=== PATIENT | male | born 1945 | race Caucasian/White ===

== ENCOUNTER 2018-09-21 11:20 | Day surgery (SDC) | payer MEDICARE, SELFPAY ==
[2018-09-21 11:48] VITALS: BP 140/77; PULSE 54; RESP 16; TEMP 36.8; O2SAT 94; BMI 28.0
[2018-09-21 11:56] LABS: Bedside Glucose 144 mg/dL (70-110)
[2018-09-21 13:26] VITALS: BP 106/68; BP 140/77; PULSE 64; RESP 18; TEMP 36.4; O2SAT 97
--- NOTE | 2018-09-21 13:28 | OP.ENDO_ITS ---
Patient Name: Inderjit Ha Procedure Date: 09/21/2018 12:50 PM Date of : 1945 Age: 73 Procedure: Colonoscopy Indications: High risk colon cancer surveillance: Personal history of colonic polyps Providers: Zofia Michael MD Referring MD: Zofia Michael MD Patient Profile: Refer to note in patient chart for documentation of history and physical. Last Colonoscopy: 5 years ago. Complications: No immediate complications. Procedure: Pre-Anesthesia Assessment: - Prior to the procedure, a History and Physical was performed, and patient medications and allergies were reviewed. The patient is competent. The risks and benefits of the procedure and the sedation options and risks were discussed with the patient. All questions were answered and informed consent was obtained. Patient identification and proposed procedure were verified by the physician in the pre-procedure area. Mental Status Examination: alert and oriented. Airway Examination: normal oropharyngeal airway and neck mobility. Respiratory Examination: clear to auscultation. CV Examination: normal. Prophylactic Antibiotics: The patient does not require prophylactic antibiotics. Prior Anticoagulants: The patient has taken no previous anticoagulant or antiplatelet agents. ASA Grade Assessment: II - A patient with mild systemic disease. After reviewing the risks and benefits, the patient was deemed in satisfactory condition to undergo the procedure. The anesthesia plan was to use monitored anesthesia care (MAC). Immediately prior to administration of medications, the patient was re-assessed for adequacy to receive sedatives. The heart rate, respiratory rate, oxygen saturations, blood pressure, adequacy of pulmonary ventilation, and response to care were monitored throughout the procedure. The physical status of the patient was re-assessed after the procedure. After I obtained informed consent, the scope was passed under direct vision. Throughout the procedure, the patient's blood pressure, pulse, and oxygen saturations were monitored continuously. The pediatric colonoscope was introduced through the anus and advanced to the cecum, identified by the appendiceal orifice, IC valve and transillumination. The colonoscopy was performed without difficulty. The patient tolerated the procedure well. The quality of the bowel preparation was adequate to identify polyps 6 mm and larger in size. There was retained fecal material which required time to lavage and aspirate out. However, the allen were cleared adequately. Scope In: 1:00:44 PM Scope Withdrawal Time 0 hours 17 minutes 24 seconds Scope Out: 1:20:59 PM Total Procedure Duration Time 0 hours 20 minutes 15 seconds Findings: The perianal and digital rectal examinations were normal. Pertinent negatives include normal sphincter tone. Non-bleeding external and internal hemorrhoids were found. Impression: - Diverticulosis in the sigmoid colon. - Non-bleeding external and internal hemorrhoids. - No specimens collected. Recommendation: - Repeat colonoscopy in 5 years for surveillance. - Return to primary care physician PRN. - Continue present medications. Procedure Code(s): --- Professional --- G0105, Colorectal cancer screening; colonoscopy on individual at high risk Diagnosis Code(s): --- Professional --- Z86.010, Personal history of colonic polyps K64.8, Other hemorrhoids K57.30, Diverticulosis of large intestine without perforation or abscess without bleeding CPT copyright 2017 [employer]. All rights reserved. The codes documented in this report are preliminary and upon leadership development manager review may be revised to meet current compliance requirements. MD Zofia Claire MD 09/21/2018 1:27:25 PM This report has been signed electronically. Number of Addenda: 0 Note Initiated On: 09/21/2018 12:50 PM
[2018-09-21 13:30] VITALS: BP 119/69; BP 140/77; PULSE 65; RESP 18; O2SAT 95
[2018-09-21 13:35] VITALS: BP 128/71; BP 140/77; PULSE 59; RESP 18; O2SAT 98
[2018-09-21 13:40] VITALS: BP 123/84; BP 140/77; PULSE 59; RESP 16; TEMP 36.2; O2SAT 95
[2018-09-21 13:54] VITALS: BP 140/77
== END 2018-09-21 14:04 | disposition home or self-care (01) ==
LOC: EN 11:25 → AC 11:27
PROVIDERS: Family Provider Family Medicine; PCP Family Medicine; Referring Provider Surgery; Visit Provider Surgery
PROC: 0DJD8ZZ Inspection of Lower Intestinal Tract, Via Natural or Artificial Opening Endoscopic (ICD-10-PCS; CPT 45378; principal; 2018-09-21 12:40)
DX: Z12.11 Encounter for screening for malignant neoplasm of colon (principal); Z86.010 Personal history of colon polyps; K64.8 Other hemorrhoids; K57.30 Diverticulosis of large intestine without perforation or abscess without bleeding; I25.10 Atherosclerotic heart disease of native coronary artery without angina pectoris; E11.9 Type 2 diabetes mellitus without complications; E78.5 Hyperlipidemia, unspecified; I10 Essential (primary) hypertension; I25.2 Old myocardial infarction; Z87.891 Personal history of nicotine dependence
CPT/HCPCS: G0105; 82962; J7120

== ENCOUNTER 2024-09-01 08:18 | Day surgery (SDC) | payer MEDICARE, MEDICAID, SELFPAY ==
[2024-09-01] VITALS (7 sets, daily range): BP systolic 88–153; BP diastolic 54–84; PULSE 57–71; RESP 14–16; TEMP 36.1–36.7; O2SAT 93–98; BMI 27.7
--- NOTE | 2024-09-01 | IMM_PTH ---
PATIENT: MARY LEO LOC: EN U#:[id number] AGE/SX: 79/M ROOM: RE09/01/[address]: Dr. Roger Pringle DO : 1945 BED: DIS: 09/01/2024 SPEC #: [id number] RECD: 09/01/24 12:45 STATUS: DANIELLA REQ #: [id number] DON: 09/01/24 00:[address]: Roger Pringle DEPT: IMMUNOHISTOCHEMISTRY RECD BY: Tim Yang ENTERED: 09/01/24 12:45 SP TYPE: IMMUNO OTHR DR: Dr. Catrachito Ferris MD Tissues: A - Gastric mucous membrane B - Esophagus, NOS Procedures: H Pylori (initial) P53 (initial) KI-67 (add) PHYSICIAN & INSTITUTION [place] [id number] SPECIMEN INFORMATION: Tissue Source: A- Gastric body biopsy, B- Distal esophagus biopsy Clinical Info: Gastroesophageal reflux disease Specimen Number: [id number] A, B CPT code: 42377x9,42840 METHODOLOGY: Deparaffinized sections of prefer/formalin-fixed tissue or PAP/DQ stained slides are incubated with monoclonal/polyclonal antibodies/oligonucleotide probes. Localization is made via biotin free immunoperoxidase method. Appropriate controls are performed and reacted as expected. Results on target cell population are indicated in the following table: RESULTS: ANTIBODY / CLONE RESULT Block A H Pylori (polyclonal) negative Block B P53 (DO-7) positive, wild type Ki-67 (30-9) positive, low These tests were developed and their performance characteristics determined by [facility]. They may not have been cleared or approved by the U.S. Food and Drug Administration. The FDA has determined that such clearance or approval is not necessary. The above immunohistochemical/dualISH markers are ordered and reviewed by the Pathologist. INTERPRETATION: A. Gastric body, biopsy: Negative for Helicobacter pylori organisms. B. Distal esophagus, biopsy: No evidence of dysplasia. AM. 09/03/2024
--- NOTE | 2024-09-01 08:32 | PRE.ANES_ITS ---
ASA Classification* ASA Classification ASA Classification: 3 Assessment & Plan Anesthesia* Anesthesia Assessment Anesthesia Assessment: Discussed sedation and/or anesthesia options, risks, benefits, and alternatives with patient/parents/legal guardian/POA. Questions invited. The patient/parents/legal guardian/POA seems to understand and agrees to proceed with anesthesia plan. Reviewed the physical assessment, medical history, allergy history and patient home medications list prior to surgery/procedure/anesthetic and documented any changes. Performed airway and anesthesia risk assessments. Anesthesia Type Anesthesia Type: MAC Anesthesia Focused Assessment* Airway Assessment Mouth opens: >3 cm Mallampati Score: II Focused Labs Anesthesia Preop lab: CBC WBC 5.6 K/mm3 (4.4-11.0) 03/18/16 10:48 RBC 4.78 M/mm3 (4.6-6.2) 03/18/16 10:48 Hgb 15.2 g/dl (13.0-16.5) 03/18/16 10:48 Hct 43.3 % (40-54) 03/18/16 10:48 Plt Count 227 K/mm3 (150-450) 03/18/16 10:48 CHEMISTRY Potassium 4.2 mmol/L (3.5-5.1) 03/18/16 10:48 Sodium 136 mmol/L (136-145) 03/18/16 10:48 BUN 17 mg/dL (7-18) 03/18/16 10:48 Creatinine 0.94 mg/dL (0.70-1.30) 03/18/16 10:48 Glucose 124 mg/dL (70-110) H 03/18/16 10:48 POC Glucose 144 mg/dL (70-110) H 09/21/18 11:45 TSH 1.81 uIU/mL (0.358-3.74) 08/25/15 10:44 COAG PT 13.1 SECONDS (11.7-14.9) 03/18/16 10:48 Pre-Assessment Diagnosis/Proposed Procedure Planned Operative Procedure(s): EGD Anesthesia History 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 When Was Last Pacemaker Check QUESTION #4 FULL TEXT: You/Your Family Experience fever (hyperthermia) with Anesthesia Last Oral Intake Last Oral intake: Last Oral Intake NPO since Meds taken in AM with sips of water? Meds patient instructed to take am of surgery PONV PONV - airport operations crew member: PONV - airport operations crew member Female No 08/30/24 10:55 HX of Motion Sickness No 08/30/24 10:55 HX of N/V After Surgery No 08/30/24 10:55 Non-Smoker Yes 08/30/24 10:55 Duration of Surgery greater No 08/30/24 10:55 than 60 minutes Number of Risk Factors 1 08/30/24 10:55 PONV Score Low Risk 08/30/24 10:55 Height & Weight Height & Weight: Anesthesia: Height & Weight Height 5 ft 6 in 03/08/24 13:30 Respiratory Assessment Respiratory Assessment - airport operations crew member: Respiratory Tract Infection Hx - airport operations crew member Hx Respiratory Tract Infection No 08/30/24 10:55 STOP Sleep Apnea STOP Sleep Apnea - airport operations crew member: STOP Sleep Apnea - airport operations crew member Hx Hypertension Yes 08/30/24 10:55 Hx Sleep Apnea No 08/30/24 10:55 CPAP BIPAP Do you snore loudly (louder No 08/30/24 10:55 than talking or can be heard Do you often feel tired/ No 08/30/24 10:55 fatigued/ sleepy during daytime? Has anyone observed you stop No 08/30/24 10:55 breathing during sleep? STOP Results Negative 08/30/24 10:55 QUESTION #5 FULL TEXT : Do you snore loudly (louder than talking or can be heard through closed doors)? Tobacco Use History Tobacco Use History - airport operations crew member: Tobacco Use History - airport operations crew member Tobacco Use Smoking Status Former smoker 08/30/24 10:55 Hx Tobacco Use No 08/30/24 10:55 Years Smoking Packs Smoked per Day Smoking Cessation Date was No - quit smoking greater 08/30/24 10:55 within the last 15 years than 15 years ago Hx Smoking Cessation Date Hx Smoking Cessation Counseling Hematologic Medial History Hematologic Hx - airport operations crew member: Hematologic Medical Hx - television journalist Hx of Blood Transfusion Yes 08/30/24 10:55 Hx of Transfusion in last 3 No 08/30/24 10:55 Months Date of Last Transfusion (if within last 3 months) Ever experience any problems No 08/30/24 10:55 with transfusion(s)? Specify any problems Hx of Preganancy in last 3 N/A 08/30/24 10:55 Months Nurse Filling Out Transfusion [email or web address] 08/30/24 10:55 & Questions: Date: 08/30/24 08/30/24 10:55 Time: 10:57 08/30/24 10:55 Patient unable to answer at this time (ie. confused, unrespo /Reproduction History /Reproductive History - airport operations crew member: /Reproductive Hx- airport operations crew member Hx Now Gestational Age (in weeks): EDC: Hx Hx Para Hx Section SAB PFSH Medical History Wears hearing aid Loss of hearing Wears dentures Rash Arthritis Fatty liver Back pain History of ulceration Gastric reflux Former smoker Shortness of breath on exertion Cardiology follow-up encounter Chest pain Home Medications ?Medication ?Instructions ?Recorded ?Last Taken ?Type lisinopril 20 mg tablet 20 mg PO BID BLOOD PRESSURE 04/01/16 09/21/18 06:00 History metformin 1,000 mg tablet 1,000 mg PO BID BLOOD SUGAR CONTROL 04/01/16 Unknown History nitroglycerin 0.4 mg sublingual 0.4 mg sublingual Q5M PRN Chest 04/01/16 Unknown History tablet Pain pravastatin 20 mg tablet 20 mg PO QHS CHOLESTEROL 04/01/16 Unknown History hydrocortisone 2.5 % topical cream 1 applic topical DAILY 03/08/24 Unknown History triamcinolone acetonide 0.1 % 1 applic topical DAILY PRN 03/08/24 Unknown History topical cream carvedilol 12.5 mg tablet 12.5 mg PO BID 08/09/24 Unknown History omeprazole 40 mg capsule,delayed 40 mg PO BID 08/30/24 08/26/24 History release Allergy/AdvReac Type Severity Reaction Status Date / Time aspirin Allergy Other Verified 08/30/24 10:51 doxycycline Allergy Chest Verified 08/30/24 10:51 tightness oxycodone HCl (From Percocet) Allergy Other Verified 08/30/24 10:51 simvastatin Allergy Other Verified 08/30/24 10:51 sucralfate AdvReac CHEST PAIN Verified 08/30/24 11:06 Family History Mother Diabetes Heart disease Family history of psychiatric condition Father Alcoholic Surgical History History of coronary artery stent placement History of ear surgery Hx of cataract extraction History of ankle surgery Social History household members: spouse Smoking Status: Former smoker Smokeless tobacco user: chewing tobacco alcohol intake: never substance use type: does not use Review of Systems (Anesthesia) ROS Narrative System reviewed and no additional complaints, except as documented.
[2024-09-01 09:08] LABS: Bedside Glucose 139 mg/dL (74-106)
--- NOTE | 2024-09-01 09:23 | HP.PCM_ITS ---
History and Physical Date of Admission: 09/01/24 Chief Complaint: Midsternal pain after eating Details: MARY LEO, is a 79 M who presents to the office today for establishment with [facility] for complaints of substernal rib-tearing pain that travels to his left arm and has been going on for weeks. He reports that cardiology has cleared cardiac involvement and the omeprazole isn't working. He does report difficulty chewing and swallowing at times, of inconsistent food types, but he says that it is not his prime concern at the moment. The substernal chest pain starts after eating any food type, except he can tolerate oatmeal and toast, on occasion milk products but they give diarrhea. He denies nausea, vomiting, constipation, feve r, chills, bloating, excessive gas and painful BMs. He denies hematochezia and melena. He denies food allergies or sensitivities. He reports having taken one of his nitroglycerin tabs due to severity of chest pain with no obvious relief. He reports having fluctuating BMs between loose and hard. ROS Const Constitutional: Positive for abnormal sleep pattern (has to sleep upright in a chair); No fatigue, fever(s), frequent falls, headache(s), weakness or weight change Eyes Eyes: No change in vision ENT ENT: Positive for abnormal hearing (hearing aids) and difficulty swallowing; No headache(s) Resp Respiratory: No cough Cardio Cardiology: Positive for chest pain at rest Symptoms: Sharp, Squeezing and Tightness and radiating jaw, neck or arm pain; No leg pain with exertion Pain scale (1-10): 10 Gastro GI: Positive for abdominal pain, bloating, diarrhea, heartburn and difficulty swallowing; No change in bowel habits, constipation, excessive flatus, Vomiting blood/hematemesis, Blood in stool, nausea/dyspepsia or vomiting Genitourinary Male: No difficulty urinating Musc Musculoskeletal: Positive for joint pain, back pain, muscle cramps and Arthritis; No joint swelling, muscle weakness, numbness, stiffness, tingling, sciatica, restless legs, leg pain at night or leg pain with exertion Skin Skin: No dry skin, yellowing of the eye, lesions, itchy eyes or rash Neuro Neurology: Positive for abnormal hearing (hearing aids); No behavioral changes, unsteady gait/balance, weakness, frequent falls, headache(s), numbness, tingling, restless legs, tremor(s), Increased tone in limbs, paralysis or seizures Psych Psychiatric: Positive for abnormal sleep pattern (has to sleep upright in a chair), No anxiety, No behavioral changes, No depression, No paranoia, No Compulsive Behavior, No hyperactivity, No inattentiveness, No obsessions/compulsions, No Temper Tantrums and No suicidal ideation Endo Endocrine: No change in body appearance, cold intolerance, fatigue, heat intolerance or weight change Aller/Imm Allergy/Immunologic: Positive for food intolerance; No itchy eyes Jr/Lymp Hematologic/Lymphatic: No easy bleeding or easy bruising Exam Const General: cooperative, healthy appearing, comfortable and no acute distress Nutritional Appearance: average body habitus Orientation: alert HENDE Head: normal to inspection Ears: hearing grossly normal bilaterally (with hearing aids) Nose: external nose normal Face and sinus: normal facial exam and face symmetric Eyes General: appearance normal, both eyes and all related structures Sclera: sclerae normal Neck Neck: normal visual inspection and full ROM Chest Chest palpation & inspection: normal inspection of the chest Resp Effort & Inspection: normal respiratory effort, able to speak in complete sentences and symmetric chest movement GI Inspection: normal to inspection Palpation: soft and no hepatosplenomegaly Skin General: no rashes or lesions noted Neuro General: patient alert, patient awake and patient oriented x3 Cognition: normal cognition Speech: speech normal Gait: normal gait Extrem General: full ROM Psych Appearance: grossly normal Mood: congruent mood Assessment and Plan Assessment and Plan (1) Gastroesophageal reflux disease: Qualifiers: Esophagitis presence: esophagitis presence not specified Qualified Code(s): K21.9 - Gastro-esophageal reflux disease without esophagitis Plan: MARY LEO, is a 79 M who presents to the office today for establishment with [facility] for complaints of substernal rib-tearing pain that travels to his left arm and has been going on for weeks. He reports that cardiology has cleared cardiac involvement and the omeprazole isn't working. Differential diagnoses include: gastritis, peptic ulcer, GERD, h.pylori, esophagitis. * EGD d/t alarm sx * increase omeprazole to 40mg po BID * add famotidine 20mg po q8h PRN breakthrough heartburn, taking at least qhs * add sucralfate 1gm po ACHS * consider barium swallow/ speech therapy eval/treat s/p EGD, pt agreeable * office follow-up in 3 months Medications: New omeprazole Stop taking 5 days before scheduled EGD. 40 mg PO BID 60 caps 2RF famotidine 20 mg PO Q8H PRN PRN 60 tabs 2RF breakthrough heartburn sucralfate Stop taking 5 days before scheduled EGD. 1 g PO QACHS 120 tabs 2RF Discontinued famotidine Discontinued Reason: Order Changed 20 mg PO QDAY omeprazole Discontinued Reason: Order Changed 20 mg PO BID Coding Level of Care Code New Pt Off vis,new,level 4 Patient Type New History Comprehensive Exam Expanded Problem Focused Medical Decision Making Moderate Complexity Diagnoses Gastroesophageal reflux disease, unspecified whether esophagitis present K21.9 Esophagitis presence: esophagitis presence not specified I have examined the patient and the H&P has been reviewed. There are no clinical changes since date of exam.
--- NOTE | 2024-09-01 09:30 | EGD_PTH ---
PATIENT: MARY LEO LOC: EN U#:[id number] AGE/SX: 79/M ROOM: RE09/01/[address]: Dr. Roger Pringle DO : 1945 BED: DIS: 09/01/2024 SPEC #: [id number] RECD: 09/01/24 10:51 STATUS: DANIELLA REDavid #: [id number] DON: 09/01/24 09:[address]: Roger Pringle DEPT: SURGICAL PATHOLOGY RECD BY: Kaye Miner ENTERED: 09/01/24 12:26 SP TYPE: EGD BIOPSY JOSE DR: Dr. Catrachito Ferris MD Tissues: A - Gastric mucous membrane B - Esophagus, NOS Procedures: Special Stain Group I Surgery Specimen Level IV Alcian Blue/PAS (control) HEADER OPERATION: EGD with biopsy PRE-OP DIAGNOSIS: Gastroesophageal reflux disease TISSUE SUBMITTED: A- Gastric body biopsy, B- Distal esophagus biopsy MICROSCOPIC DIAGNOSIS A. Gastric body, biopsy: Moderate to severe chronic gastritis. See comment. B. Distal esophagus, biopsy: Gastroesophageal junction mucosa with chronic inflammation. 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 No evidence of dysplasia. See comment. 09/02/2024 COMMENT A. The results of immunohistochemistry for Helicobacter pylori will be reported separately ([id number]). B. Alcian blue/PAS stain with matched control is used in the evaluation of the specimen. Immunohistochemistry ([id number]) for P53 and Ki-67 will be performed and results will be reported separately. MICROSCOPIC DESCRIPTION Slides are reviewed. GROSS DESCRIPTION A. Received in fixative is one container labeled with the patient's name and designated Gastric body biopsy. The specimen consists of multiple irregular fragments of light carlisle soft tissue that in aggregate measure 1.0 x 0.4 x 0.1 cm. The specimen is totally submitted in one cassette. B. Received in fixative is one container labeled with the patient's name and designated Distal esophagus biopsy. The specimen consists of two irregular fragments of light carlisle soft tissue that in aggregate measure 0.8 x 0.3 x 0.1 cm. The specimen is totally submitted in one cassette. SJ 09/01/2024 TC:3 CPT:[id number]
--- NOTE | 2024-09-01 10:27 | PCM.POST.ANE ---
Anesthesia: Postop Eval I Current Vital Signs Temperature: 97.7 F Pulse Rate: 57 Blood Pressure: 94/54 Respiratory Rate: 16 Pulse Ox: 96 Oxygen Delivery Method: Room Air Assessment Airway patent: Yes Spontaneous unlabored respirations: Yes Mental status: Asleep nausea: No Vomiting: No Anesthesia Complication: No Fluid Hydration Crystalloid volume administer (ml): 20 Total IV fluid infused: 20 Progress Note Anesthesia document: Postop Eval 1 completed: Yes
--- NOTE | 2024-09-01 17:32 | PCM.POSTANE2 ---
Anesthesia Postop Eval I Sum Postop Eval Completion status Anesthesia document: Postop Eval 1 completed: Yes Anesthesia Postop Eval I Summary Anesthesia Postop Eval I Summary: Anesthesia Postop Eval I: Assessment Summary Airway patent Yes 09/01/24 10:29 [email or web address] Spontaneous unlabored Yes 09/01/24 10:29 [email or web address] respirations Mental status Asleep 09/01/24 10:29 [email or web address] nausea No 09/01/24 10:29 [email or web address] Vomiting No 09/01/24 10:29 [email or web address] Anesthesia Postop Eval I: Fluid Summary Crystalloid volume administer 20 09/01/24 10:29 [email or web address] (ml) Colloids volume administered ( ml) Blood Product volume administered (ml) Total IV fluid infused 20 09/01/24 10:29 [email or web address] Anesthesia Postop Eval I: Summary Notes Anesthesia Complication No 09/01/24 10:29 [email or web address] Anesthesia Complication Comment: Post-operative progress note Anesthesia: Postop Eval II Evaluation Mental status: Awake and Calm Pain Level: 0 nausea: No Vomiting: No Complications Anesthesia Complication: No
--- NOTE | 2024-09-06 15:26 | OP.CCLET_ITS ---
09/01/2024 Catrachito Ferris Re : Upper GI endoscopy procedure for Inderjit Whiteheadr [place] This procedure was performed on Sunday, September 01, 2024. My impressions and recommendations are as follows: Impressions : - No gross lesions in the entire esophagus. - Z-line irregular, 40 cm from the incisors. Biopsied. - Chronic gastritis. Biopsied. - Normal first portion of the duodenum. Recommendations : - Discharge patient to home. - Resume regular diet today. - Continue present medications. - Await pathology results. My findings are described in the full procedure note, which is enclosed. If I can be of further assistance, please feel free to contact me at . Sincerely, Roger Pringle, 09/01/2024 10:25:50 AM This report has been signed electronically.
--- NOTE | 2024-09-06 15:26 | OP.EGD_ITS ---
Patient Name: Inderjit Ha Procedure Date: 09/01/2024 10:05 AM Date of : 1945 Age: 79 Procedure: Upper GI endoscopy Indications: Suspected esophageal reflux, Failure to respond to medical treatment Providers: Roger Pringle DO Referring MD: Catrachito Ferris Medicines: Monitored Anesthesia Care Patient Profile: This is a 79 year old male. Refer to note in patient chart for documentation of history and physical. Patient has symptoms of chronic chest pain. Complications: No immediate complications. Procedure: Pre-Anesthesia Assessment: - Prior to the procedure, a History and Physical was performed, and patient medications and allergies were reviewed. The patient is competent. The risks and benefits of the procedure and the sedation options and risks were discussed with the patient. All questions were answered and informed consent was obtained. Patient identification and proposed procedure were verified by the physician in the pre-procedure area. Mental Status Examination: alert and oriented. Airway Examination: normal oropharyngeal airway and neck mobility. Respiratory Examination: clear to auscultation. CV Examination: normal. Prophylactic Antibiotics: The patient does not require prophylactic antibiotics. Prior Anticoagulants: The patient has taken no anticoagulant or antiplatelet agents except for NSAID medication. ASA Grade Assessment: II - A patient with mild systemic disease. After reviewing the risks and benefits, the patient was deemed in satisfactory condition to undergo the procedure. The anesthesia plan was to use monitored anesthesia care (MAC). Immediately prior to administration of medications, the patient was re-assessed for adequacy to receive sedatives. The heart rate, respiratory rate, oxygen saturations, blood pressure, adequacy of pulmonary ventilation, and response to care were monitored throughout the procedure. The physical status of the patient was re-assessed after the procedure. After obtaining informed consent, the endoscope was passed under direct vision. Throughout the procedure, the patient's blood pressure, pulse, and oxygen saturations were monitored continuously. The Endoscope was introduced through the mouth, and advanced to the second part of duodenum. The upper GI endoscopy was accomplished without difficulty. The patient tolerated the procedure well. Scope In: 10:13:31 AM Scope Out: 10:17:57 AM Total Procedure Duration Time 0 hours 4 minutes 26 seconds Findings: No gross lesions were noted in the entire esophagus. The Z-line was irregular and was found 40 cm from the incisors. Biopsies were taken with a cold forceps for histology. Verification of patient identification for the specimen was done. Estimated blood loss was minimal. Localized mild inflammation characterized by erythema and friability was found in the gastric body. Biopsies were taken with a cold forceps for histology. Verification of patient identification for the specimen was done. Estimated blood loss was minimal. Biopsies were taken with a cold forceps for Helicobacter pylori testing. Verification of patient identification for the specimen was done. Estimated blood loss was minimal. The first portion of the duodenum was normal. Impression: - No gross lesions in the entire esophagus. - Z-line irregular, 40 cm from the incisors. Biopsied. - Chronic gastritis. Biopsied. - Normal first portion of the duodenum. Recommendation: - Discharge patient to home. - Resume regular diet today. - Continue present medications. - Await pathology results. Procedure Code(s): --- Professional --- 86444, Esophagogastroduodenoscopy, flexible, transoral; with biopsy, single or multiple CPT copyright 2021 [employer]. All rights reserved. The codes documented in this report are preliminary and upon main line assembler review may be revised to meet current compliance requirements. Roger Pringle DO 09/01/2024 10:25:50 AM This report has been signed electronically. Number of Addenda: 0 Note Initiated On: 09/01/2024 10:05 AM
== END 2024-09-01 11:22 | disposition home or self-care (01) ==
LOC: EN 08:20 → AC 08:20
PROVIDERS: PCP Family Medicine; Referring Provider Family Medicine; Visit Provider Internal Medicine Gastroenterology
PROC: 0DJ08ZZ Inspection of Upper Intestinal Tract, Via Natural or Artificial Opening Endoscopic (ICD-10-PCS; CPT 43235; principal; 2024-09-01 09:25)
DX: K21.9 Gastro-esophageal reflux disease without esophagitis (principal); K29.50 Unspecified chronic gastritis without bleeding; K22.89 Other specified disease of esophagus; K22.70 Barrett's esophagus without dysplasia; R07.2 Precordial pain
CPT/HCPCS: 43239; 82962; 88305; 88312; 88341; 88342; A4216; J2405

== ENCOUNTER → 2024-09-24 | Outpatient (CLI) | payer MEDICARE, MEDICAID, SELFPAY | END | disposition home or self-care (01) | PROVIDERS: PCP Family Medicine; Referring Provider Nurse Practitioner Family; Visit Provider Nurse Practitioner Family | DX: R06.02 Shortness of breath (principal) | CPT/HCPCS: 78452; 93017; A9500; A4216; J2785 ==

== ENCOUNTER 2025-03-24 12:00 | Observation (INO) | payer MEDICARE, MEDICAID, SELFPAY ==
[2025-03-24] VITALS (11 sets, daily range): BP systolic 91–135; BP diastolic 53–88; PULSE 76–95; RESP 14–26; TEMP 36.2–37; O2SAT 82–96; BMI 28.4
--- NOTE | 2025-03-24 12:58 | VDUE_ITS ---
Reason For Study Reason For Study: RUE Swelling Right Proximal Left Proximal Right jugular vein is spontaneous, widely patent, Left jugular vein is spontaneous, widely patent, phasic, with no intraluminal echogenicity noted. phasic, with no intraluminal echogenicity noted. Right subclavian vein is spontaneous, widely patent, Left subclavian vein is spontaneous, widely patent, phasic, with no intraluminal echogenicity noted. phasic, with no intraluminal echogenicity noted. Right Lower Arm Left Arm Right radial vein is compressible. Left axillary vein is spontaneous, patent, phasic, Right ulnar vein is compressible. competent, compressible and demonstrates Right Arm augmentation. Right axillary vein is spontaneous, patent, phasic, Left brachial vein is compressible. competent, compressible and demonstrates Left cephalic vein is compressible. augmentation. Left basilic vein is compressible. Right brachial vein is compressible. Left Lower Arm Right cephalic vein is compressible. Left radial vein is compressible. Right basilic vein is compressible. Left ulnar vein is compressible. Procedure This was a bilateral upper extremity venous doppler examination. STAT Results given to Dr. Marley. VL/Venous Duplex US - Huseyin Extrem Interpretation Summary Deep veins of the bilateral upper extremities are patent and compressible segme ntally. There is no evidence of deep vein thrombosis. Superficial veins of the bilateral upper extremities are patent and compressibl e segmentally. There is no evidence of superficial vein thrombosis. Ordering Physician: Bo Marley Referring Physician: Catrachito Ferris Performed By: Dudley Henry, RVT ???
[2025-03-24 13:12] LABS: Absolute Lymphocyte Count 1.29 X10^3/uL (0.83-4.51); Absolute Neutrophil Count 6.1 X10^3/uL (2.0-7.7); Basophil# 0.01 X10^3/uL; Basophil% 0.1 % (0-1); Eosinophil# 0.02 X10^3/uL; Eosinophils% 0.3 % (0-5); Hematocrit 41.4 % (40-54); Hemoglobin 14.4 g/dL (13.0-16.5); Lymphocyte # 1.29 X10^3/ul (0.83-4.51); Lymphocyte % 16.2 % (19-41); Mean Corp Hgb Conc 34.8 g/dL (32-36); Mean Corpuscular Hgb 31.6 pg (27.0-32.0); Mean Corpuscular Volume 90.8 fL (80-94); Mean Platelet Vol. 9.2 fl (6.2-12.0); Monocyte# 0.45 X10^3/uL; Monocyte% 5.7 % (0-10); NRBC Flagged by Analyzer 0 % (0-5); Neutrophil # 6.14 X10^3/uL (2.7-7.7); Neutrophil % 77.2 % (47-70); Platelet Count 238 K/mm3 (150-450); RBC Distribution Width CV 14.1 % (11.6-14.6); RBC Distribution Width SD 46.6 fl (35.1-43.9); Red Blood Count 4.56 M/mm3 (4.6-6.2)
[2025-03-24] MEDS: 0.9% Normal Saline (1000mL) 1,000 ML 1000 ML IV (13:19)
[2025-03-24 14:04] LABS: Anion Gap 16 (5-15); BUN 19 mg/dL (4-19); Carbon Dioxide 20.1 mmol/L (21.0-32.0); Chloride 97 mmol/L (98-108); Creatinine, Serum 1.26 mg/dL (0.70-1.20); EST Glomerular Filtration Rate 58 (>60); Glucose 167 mg/dL (70-99); Potassium 4.2 mmol/L (3.3-5.1); Sodium Level 133 mmol/L (133-145)
--- NOTE | 2025-03-24 15:17 | EX.ED.DYSGE1 ---
HPI History of Present Illness Chief Complaint: General Illness Narrative Narrative: 79-year-old male past medical history of diabetes presents via EMS from urgent care with near syncopal episode. He and his relate history that he has had bilateral hand swelling for the last few days. He denies any chest pain or shortness of breath. While he was being evaluated in urgent care, he felt near syncopal as if he was going to pass out. He had not eaten much today. He denied any prodromal symptoms. No recent fevers or chills, no nausea or vomiting, no diarrhea. [facility] Medical History Wears hearing aid Loss of hearing Wears dentures Rash Arthritis Fatty liver Back pain History of ulceration Gastric reflux Former smoker Shortness of breath on exertion Cardiology follow-up encounter Chest pain Home Medications ?Medication ?Instructions ?Recorded ?Last Taken ?Type lisinopril 20 mg tablet 20 mg PO BID BLOOD PRESSURE 04/01/16 03/24/25 History metformin 1,000 mg tablet 1,000 mg PO BID BLOOD SUGAR CONTROL 04/01/16 03/24/25 History nitroglycerin 0.4 mg sublingual 0.4 mg sublingual Q5M PRN Chest 04/01/16 Unknown History tablet Pain pravastatin 20 mg tablet 20 mg PO QHS CHOLESTEROL 04/01/16 03/23/25 History triamcinolone acetonide 0.1 % 1 applic topical DAILY PRN 03/08/24 Unknown History topical cream carvedilol 12.5 mg tablet 12.5 mg PO BID 08/09/24 03/24/25 History omeprazole 40 mg capsule,delayed 40 mg PO BID #60 caps 11/22/24 03/24/25 Rx release amoxicillin 875 mg-potassium 1 tab PO BID #20 tabs 03/24/25 Unknown Rx clavulanate 125 mg tablet aspirin 81 mg tablet,delayed 81 mg PO DAILY 03/24/25 03/24/25 History release clopidogrel 75 mg tablet 75 mg PO DAILY 03/24/25 03/24/25 History furosemide 20 mg tablet 20 mg PO DAILY 03/24/25 03/24/25 History ranolazine 1,000 mg 1,000 mg PO Q12H 03/24/25 03/24/25 History tablet,extended release,12 hr Allergy/AdvReac Type Severity Reaction Status Date / Time aspirin Allergy Other Verified 03/24/25 12:07 doxycycline Allergy Chest Verified 03/24/25 12:07 tightness oxycodone HCl (From Percocet) Allergy Other Verified 03/24/25 12:07 simvastatin Allergy Other Verified 03/24/25 12:07 sucralfate AdvReac CHEST PAIN Verified 03/24/25 12:07 Family History Mother Diabetes Heart disease Family history of psychiatric condition Father Alcoholic Surgical History History of coronary artery stent placement History of ear surgery Hx of cataract extraction History of ankle surgery Social History household members: spouse Smoking Status: Former smoker Smokeless tobacco user: chewing tobacco alcohol intake: never substance use type: does not use ROS ROS ED ROS Narrative Review of systems positive for bilateral hand swelling and redness for the last few days. Denies fevers or chills, no nausea or vomiting, no diarrhea. Positive near syncopal episode in urgent care today. No prodromal chest pain or shortness of breath. No exacerbating or alleviating factors. EXAM Physical Exam Narrative Exam Narrative: Afebrile. Vital signs noted. Nontoxic-appearing. Cardiovascular examination reveals a regular rate and rhythm. Lungs are clear to auscultation bilaterally. The abdomen is soft, nontender without guarding or rebound. Positive bowel sounds. Neurological examination nonfocal and nonlateralizing. Inspection of the bilateral hands does show erythema diffusely with bilateral swelling of the hands. No lymphangitic streaking. Full range of motion of fingers. Dry cracked areas of skin on hands diffusely. No fluctuance palpable radial pulses bilaterally. Const Vital Signs: 03/24/25 12:01 03/24/25 12:07 03/24/25 14:00 Temperature 97.2 F L Temperature Source Oral Pulse Rate 78 85 Respiratory Rate 20 H 20 H Respiratory Pattern Normal Blood Pressure 100/88 H 113/79 Blood Pressure Mean 92 90 Pulse Ox 96 90 Oxygen Delivery Method Room Air Room Air Oxygen Flow Rate (L/min) 03/24/25 15:47 Temperature Temperature Source Pulse Rate 76 Respiratory Rate 24 H Respiratory Pattern Blood Pressure 109/53 L Blood Pressure Mean 71 Pulse Ox 94 Oxygen Delivery Method Nasal Cannula Oxygen Flow Rate (L/min) 2 MDM MDM MDM Narrative Medical decision making narrative: The differential diagnosis includes but not limited to cellulitis of the bilateral hands versus DVTs versus peripheral edema. I have low suspicion for heart failure. Patient does not have swelling of his legs. Regarding his near syncope, he may have had transient hypoglycemia versus vasovagal episode. EKG was obtained and interpreted by myself independently as normal sinus rhythm at 88 bpm without ectopy or acute ST changes. No STEMI. QTc slightly prolonged at 498 ms. I reviewed his laboratory work and he has normal white count of 8.0, hemoglobin normal at 14.4, hematocrit 41.4, platelet count 238. Glucose is appropriately elevated at 167, BUN of 19 and creatinine 1.26 with slight elevation over baseline when compared to prior labs. Sodium normal at 133 with potassium 4.2 and chloride 97. I reviewed the interpretation of the venous Dopplers of the bilateral upper extremities and discussed the patient with the weatherization field technician initially. There is no evidence of DVT in the bilateral upper extremities. I do feel that he may have more of a cellulitis as a cause of the swelling. However, RN reports that on the way back to the bathroom, patient was hypoxic but he denies any chest pain or shortness of breath. He does have history of COPD. He was placed on 2 L nasal cannula oxygen, with good oxygen saturation. In order to see if there is any obstruction in the chest causing his bilateral upper extremity swelling, CTA of the chest will be obtained to help rule out pulmonary embolism. He was started on a dose of Rocephin for possible cellulitis of the bilateral upper extremities. I wrote him prescription for Augmentin which she has tolerated in the past for the next 10 days. I reviewed the radiology report of the CTA of the chest, and there is no evidence of pulmonary embolism. At this point in time, I do feel that he can be discharged to follow-up. Return instructions to the emergency department were reviewed. Disposition is discharged home in stable condition. History & Record Review Discussion w/independent historian: Patient Additional record(s) reviewed:: Prior ED visit Lab Data Attestation: I reviewed the patient's lab results. Labs: Laboratory Results - last 24 hr 03/24/25 03/24/25 13:05 15:42 WBC 8.0 RBC 4.56 L Hgb 14.4 Hct 41.4 MCV 90.8 MCH 31.6 MCHC 34.8 RDW Std Deviation 46.6 H RDW Coeff of Reg 14.1 Plt Count 238 MPV 9.2 Immature Gran % (Auto) 0.500 Neut % (Auto) 77.2 H Lymph % (Auto) 16.2 L [place] % (Auto) 5.7 Eos % (Auto) 0.3 Baso % (Auto) 0.1 Absolute Neuts (auto) 6.1 Absolute Lymphs (auto) 1.29 Nucleated RBC % 0 Sodium 133 Potassium 4.2 Chloride 97 L Carbon Dioxide 20.1 L Anion Gap 16 H BUN 19 Creatinine 1.26 H Estim Creat Clear Calc 48.00 L Est GFR (MDRD) Non-Af 58 L BUN/Creatinine Ratio 15.0 Glucose 167 H Calcium 9.0 Urine Color Yellow Urine Clarity Sl. Cloudy Urine pH 5.0 Ur Specific [place] 1.020 Urine Protein 30 H Urine Glucose (UA) 100 H Urine Ketones Negative Urine Occult Blood Negative Urine Nitrite Positive H Urine Bilirubin 1 H Urine Urobilinogen 1 H Ur Leukocyte Esterase 25 H Urine RBC 0-5 SEEN Urine WBC 5-10 SEEN Ur Squamous Epith Cells 0-5 SEEN Urine Bacteria 1+ Hyaline Casts 5-10 SEEN Urine Mucus 1+ Radiography Diagnostic Testing: Clinical Impression(s) from Imaging Studies Venous Doppler Study 03/24/25 12:58 Interpretation Summary Deep veins of the bilateral upper extremities are patent and compressible segmentally. There is no evidence of deep vein thrombosis. Superficial veins of the bilateral upper extremities are patent and compressible segmentally. There is no evidence of superficial vein thrombosis. Ordering Physician: Bo Marley Referring Physician: Catrachito Ferris Performed By: Dudley Henry, RVT ??? Chest CTA 03/24/25 15:52 IMPRESSION: 1. No pulmonary embolism or other acute cardiopulmonary abnormality. 2. Emphysematous changes. 3. Mild narrowing at the origin of the celiac axis. Correlate with symptoms. Reading Location: [id number] Discharge Plan Triage Chief Complaint: General Illness ED Provider: Bo Marley Dx/Rx/DC Orders Clinical Impression: Bilateral hand swelling, Cellulitis, Chronic obstructive pulmonary disease, Near syncope Instructions: ED Cellulitis, ED Lymphedema, ED Near-Fainting, Uncertain Cause Prescriptions: New amoxicillin-pot clavulanate 875-125 mg tablet 1 tab PO BID Qty: 20 0RF No Action triamcinolone acetonide 0.1 % cream 1 applic topical DAILY PRN carvedilol 12.5 mg tablet 12.5 mg PO BID lisinopril 20 MG tablet 20 mg PO BID metformin 1,000 MG tablet 1,000 mg PO BID nitroglycerin 0.4 MG tablet 0.4 mg sublingual Q5M PRN (Reason: Chest Pain) pravastatin 20 MG tablet 20 mg PO QHS furosemide 20 mg tablet 20 mg PO DAILY ranolazine 1,000 mg tablet extended release 12 hr 1,000 mg PO Q12H aspirin 81 mg tablet,delayed release (DR/EC) 81 mg PO DAILY clopidogrel 75 mg tablet 75 mg PO DAILY omeprazole 40 mg capsule,delayed release(DR/EC) 40 mg PO BID Qty: 60 3RF Primary Care Provider: Catrachito Ferris Referrals: Catrachito Ferris MD [Primary Care Provider] - 3-5 Days if not improving Activity Restrictions/Additional Instructions: Return to the emergency department with increased redness or swelling of your hands, new or worsening symptoms. Print Language: Kazakh Disposition Disposition: Home, Self Care
--- NOTE | 2025-03-24 15:52 | CT_ITS ---
PROCEDURE: CTA CHEST W/WO CONTRAST 03/24/2025 REASON FOR EXAM: HYPOXIA, SHORTNESS OF BREATH TECHNIQUE: CTA axial imaging of the chest with intravenous contrast. Multiplanar and multisequence images were obtained. One or more dose reduction techniques were used (e.g., Automated exposure control, adjustment of the mA and/or kV according to patient size, use of iterative reconstruction technique). RADIATION DOSE SUMMARY: CTDlvol: 11.9 mGy DLP: 397.6 mGycm COMPARISON: None FINDINGS: Lymph nodes: Calcified right hilar nodes suggestive of prior granulomatous disease. Heart: Moderate coronary artery calcifications are noted. Thoracic Aorta: Mild calcified atherosclerosis. Pulmonary Vessels: No evidence of acute pulmonary emboli through the major subsegmental branches. Lungs and Airways: Trace nonobstructing secretions throughout the proximal airways. Centrilobular emphysema with mild diffuse bronchial wall thickening. No focal consolidation. Pleura: No pleural effusion. No pneumothorax. Upper Abdomen: Narrowing at the origin of the celiac axis. Visualized portions of the upper abdominal viscera are otherwise unremarkable. Bones: Degenerative changes of the thoracic spine. CT/CTA Chest W/WO Contrast IMPRESSION: 1. No pulmonary embolism or other acute cardiopulmonary abnormality. 2. Emphysematous changes. 3. Mild narrowing at the origin of the celiac axis. Correlate with symptoms. Reading Location: [facility]
[2025-03-24 16:03] LABS: Color, Urine Yellow (Yellow); Glucose, Dipstick 100 mg/dl (Normal); Ketone-Dipstick Negative (Negative); Leukocyte Esterase-Dipstick 25 /ul (Negative); Nitrite-Dipstick Positive (Negative); Occult Blood-Urine Negative /ul (Negative); Protein-Dipstick 30 mg/dl (Negative); Urine Clarity Sl. Cloudy (Clear); Urine Urobilinogen 1 mg/dl (Normal)
[2025-03-24 16:06] LABS: Urine Bilirubin Dipstick 1 mg/dL (Negative)
[2025-03-24 16:38] LABS: Squamous Epithelial Cells - UA 0-5 SEEN /hpf (0-5); White Blood Cells 5-10 SEEN /hpf (0-5)
[2025-03-24 16:39] LABS: Mucous, Urine 1+ /hpf (<or=2+)
[2025-03-24 16:40] LABS: Hyaline Cast 5-10 SEEN /lpf (0-5)
[2025-03-24 16:41] LABS: Bacteria 1+ /hpf (None Seen); Red Blood Cells-Urine 0-5 SEEN /hpf (0-5)
[2025-03-24] MEDS: Ceftriaxone 1 GM/50 ML BAG IV (16:54)
[2025-03-24] MEDS: Ipratropium/Albuterol Sulfate 3 ML AMPUL.NEB INHALATION ×2 (17:09→22:50)
--- NOTE | 2025-03-24 18:08 | PCM.HP.STD ---
HPI - General General Date of Admission: 03/24/25 Date of Service: 03/24/25 Chief Complaint: Presyncope HPI Narrative MARY LEO, is a 79-year-old male with a history of hypertension, diabetes, GERD, coronary artery disease with stenting who presented to [facility] ED 03/24/2025 via EMS from urgent care with a near syncopal episode. Patient's had bilateral hand swelling for the past couple of days and while he was being evaluated in urgent care he felt near syncopal and like he was going to pass out. Has not eaten much today and denied any other symptoms. No chest pain or shortness of breath. In the ED temperature 97.2, heart rate 78 with blood pressure 100/88, respiratory rate 20 and pulse ox 96% on room air initially. CBC with white blood cell count of 8 and hemoglobin 14.4. Creatinine 1.26 with no previous values since 2016 so no recent comparison. Upper extremity venous duplex is negative for clots and CTA obtained which showed no PE or other acute cardiopulmonary abnormality, emphysematous changes, mild narrowing at the origin of the celiac axis. UA with nitrite, 25 leuk esterase with 5-10 white blood cells and 1+ bacteria but did also have some casts and mucus. It was felt patient's hand erythema and swelling was due to cellulitis of patient given antibiotics with plan for discharge home. Initially patient was to be discharged home however after his oxygen was taken off he desaturated to the 80s on ambulation so hospitalist contacted for admission. Patient reports he has had the hand swelling for a couple of days and they thought initially it may be an allergic reaction as he had a couple new foods that he had not had before however the swelling is persisted which is why they sought medical attention. Patient denies swelling anywhere else and denies any problems with his breathing after he ate those foods or other focal complaints. In regards to the episode where he felt like he might pass out he was at urgent care and felt lightheaded for about 5 minutes when it persisted even while sitting down. Symptoms have completely resolved and not recurred. Reports he sometimes has shortness of breath with exertion for longer distances but is supposed to see a caregiver services home on the to discuss possible heart cath and stenting as he has multivessel disease. Patient denies shortness of breath at present, no cough or chest pain, no abdominal pain. Has had some nausea and dry heaves intermittently over the past 2 months but nothing that is changed recently. [facility] Medical History Wears hearing aid Loss of hearing Wears dentures Rash Arthritis Fatty liver Back pain History of ulceration Gastric reflux Former smoker Shortness of breath on exertion Cardiology follow-up encounter Chest pain Home Medications ?Medication ?Instructions ?Recorded ?Last Taken ?Type lisinopril 20 mg tablet 20 mg PO BID BLOOD PRESSURE 04/01/16 03/24/25 History metformin 1,000 mg tablet 1,000 mg PO BID BLOOD SUGAR CONTROL 04/01/16 03/24/25 History nitroglycerin 0.4 mg sublingual 0.4 mg sublingual Q5M PRN Chest 04/01/16 Unknown History tablet Pain pravastatin 20 mg tablet 20 mg PO QHS CHOLESTEROL 04/01/16 03/23/25 History triamcinolone acetonide 0.1 % 1 applic topical DAILY PRN 03/08/24 Unknown History topical cream carvedilol 12.5 mg tablet 12.5 mg PO BID 08/09/24 03/24/25 History omeprazole 40 mg capsule,delayed 40 mg PO BID #60 caps 11/22/24 03/24/25 Rx release amoxicillin 875 mg-potassium 1 tab PO BID #20 tabs 03/24/25 Unknown Rx clavulanate 125 mg tablet aspirin 81 mg tablet,delayed 81 mg PO DAILY 03/24/25 03/24/25 History release clopidogrel 75 mg tablet 75 mg PO DAILY 03/24/25 03/24/25 History furosemide 20 mg tablet 20 mg PO DAILY 03/24/25 03/24/25 History ranolazine 1,000 mg 1,000 mg PO Q12H 03/24/25 03/24/25 History tablet,extended release,12 hr Allergy/AdvReac Type Severity Reaction Status Date / Time aspirin Allergy Other Verified 03/24/25 12:07 doxycycline Allergy Chest Verified 03/24/25 12:07 tightness oxycodone HCl (From Percocet) Allergy Other Verified 03/24/25 12:07 simvastatin Allergy Other Verified 03/24/25 12:07 sucralfate AdvReac CHEST PAIN Verified 03/24/25 12:07 Family History Mother Diabetes Heart disease Family history of psychiatric condition Father Alcoholic Surgical History History of coronary artery stent placement History of ear surgery Hx of cataract extraction History of ankle surgery Social History household members: spouse Smoking Status: Former smoker Smokeless tobacco user: chewing tobacco alcohol intake: never substance use type: does not use ROS ROS Narrative General: Denies fever/chills HENT: Denies headache, denies stuffy nose, denies sore throat EYES: Denies changes in vision Resp: Denies cough, sometimes short of breath on longer distances Cardiac: Denies chest pain GI: Denies abdominal pain, denies changes in bowel, does get some nausea and dry heaves which is not new : Denies changes in urination Extremity: Swelling in bilateral hands MSK: Denies weakness Neuro: Denies any numbness/tingling Heme: Denies any bleeding or bruising Skin: Erythema in the hands and wrists/somewhat onto forearms Psychiatric: No complaints voiced Vital Signs Vital Signs Vital Signs: 03/24/25 12:01 03/24/25 12:07 03/24/25 14:00 Temperature 97.2 F L Temperature Source Oral Pulse Rate 78 85 Respiratory Rate 20 H 20 H Respiratory Pattern Normal Blood Pressure 100/88 H 113/79 Blood Pressure Mean 92 90 Pulse Ox 96 90 Oxygen Delivery Method Room Air Room Air Oxygen Flow Rate (L/min) 03/24/25 15:47 03/24/25 17:00 03/24/25 17:03 Temperature Temperature Source Pulse Rate 76 80 Respiratory Rate 24 H 20 H Respiratory Pattern Blood Pressure 109/53 L 102/62 Blood Pressure Mean 71 75 Pulse Ox 94 82 94 Oxygen Delivery Method Nasal Cannula Room Air Nasal Cannula Oxygen Flow Rate (L/min) 2 2 03/24/25 17:09 03/24/25 17:45 03/24/25 17:46 Temperature 98.2 F Temperature Source Pulse Rate 95 85 85 Respiratory Rate 16 17 17 Respiratory Pattern Blood Pressure 91/66 91/66 Blood Pressure Mean 74 74 Pulse Ox 92 92 Oxygen Delivery Method Nasal Cannula Oxygen Flow Rate (L/min) 2 03/24/25 17:46 Temperature 98.2 F Temperature Source Oral Pulse Rate 85 Respiratory Rate 26 H Respiratory Pattern Blood Pressure 91/66 Blood Pressure Mean 74 Pulse Ox 94 Oxygen Delivery Method Nasal Cannula Oxygen Flow Rate (L/min) 2 Weight Weight: 79.9 kg Body Mass Index (BMI) 28.4 Physical Exam Narrative General: Alert, oriented, no apparent distress HEENT: Atraumatic, normocephalic Eyes: Anicteric, normal conjunctiva, extraocular movements grossly intact Neck: Supple Respiratory: No overt wheezes or rhonchi, normal respiratory effort Cardiovascular: Regular rate and rhythm GI: Soft, nontender, nondistended Extremities: Patient with edema in hands and wrists which is pitting in nature Musculoskeletal: Moving all extremities Neuro: No overt focal neurological deficits Skin: Patient with some erythematous hands with sections that also go up arms, not uniformly in a glove distribution Psych: Cooperative Results Lab / Micro Data 03/24/25 13:05 03/24/25 13:05 Labs: Laboratory Results - last 24 hr 03/24/25 13:05: WBC 8.0, RBC 4.56 L, Hgb 14.4, Hct 41.4, MCV 90.8, MCH 31.6, MCHC 34.8, RDW Std Deviation 46.6 H, RDW Coeff of Reg 14.1, Plt Count 238, MPV 9.2, Immature Gran % (Auto) 0.500, Neut % (Auto) 77.2 H, Lymph % (Auto) 16.2 L, [place] % (Auto) 5.7, Eos % (Auto) 0.3, Baso % (Auto) 0.1, Absolute Neuts (auto) 6.1, Absolute Lymphs (auto) 1.29, Nucleated RBC % 0, Sodium 133, Potassium 4.2, Chloride 97 L, Carbon Dioxide 20.1 L, Anion Gap 16 H, BUN 19, Creatinine 1.26 H, Estim Creat Clear Calc 48.00 L, Est GFR (MDRD) Non-Af 58 L, BUN/Creatinine Ratio 15.0, Glucose 167 H, Calcium 9.0 03/24/25 15:42: Urine Color Yellow, Urine Clarity Sl. Cloudy, Urine pH 5.0, Ur Specific [place] 1.020, Urine Protein 30 H, Urine Glucose (UA) 100 H, Urine Ketones Negative, Urine Occult Blood Negative, Urine Nitrite Positive H, Urine Bilirubin 1 H, Urine Urobilinogen 1 H, Ur Leukocyte Esterase 25 H, Urine RBC 0-5 SEEN, Urine WBC 5-10 SEEN, Ur Squamous Epith Cells 0-5 SEEN, Urine Bacteria 1+, Hyaline Casts 5-10 SEEN, Urine Mucus 1+ Imaging Radiology Impression Venous Doppler Study 03/24/25 12:58 Interpretation Summary Deep veins of the bilateral upper extremities are patent and compressible segmentally. There is no evidence of deep vein thrombosis. Superficial veins of the bilateral upper extremities are patent and compressible segmentally. There is no evidence of superficial vein thrombosis. Ordering Physician: Bo Marley Referring Physician: Catrachito Ferris Performed By: Dudley Henry RVT ??? Chest CTA 03/24/25 15:52 IMPRESSION: 1. No pulmonary embolism or other acute cardiopulmonary abnormality. 2. Emphysematous changes. 3. Mild narrowing at the origin of the celiac axis. Correlate with symptoms. Reading Location: [facility] Assessment & Plan Assessment/Plan (1) Bilateral hand swelling: (2) Hypoxia: PLAN: Plan # Presyncopal episode -Lasted for 5 minutes and was present while patient was sitting down -admit to telemetry -?Secondary to hypoxia versus hypotension versus arrhythmia versus ? -EGK normal sinus rhythm with no arrhythmia or ST elevation - CTA with no PE -orthostatic vital signs ordered -Of note in the ED patient did drop down to 91/66 and blood pressure was somewhat low, will hold patient's lisinopril -will obtain echo - Will check BNP and troponin #Hypertension - Patient's blood pressure borderline upon arrival, did improve after arrival to the floor - Continuing Coreg and holding lisinopril at this time - Orthostats as above #Hypoxia - Reportedly patient desaturated on ambulation for discharge though he denies any current respiratory complaints - CTA negative for acute process - COVID/flu/RSV negative - Will check respiratory panel -Duonebs ordered - Checking echo already as above - Will check BNP though only upper extremities are swollen with no lower extremity swelling officiated - Continue patient's home furosemide of 20 mg daily at this time #Bilat upper extremity swelling -Unclear etiology -No DVTs appreciated on venous duplex per report - Patient and deny any new activities like working in the yard or any new detergents -Does note that the swelling seemed to start after eating some new foods 3 days ago, did not have any respiratory symptoms or other swelling at that time - Does almost appear cellulitic in nature and patient given antibiotics in the ED, these were continued - Is a possibility that this prolonged allergy response however given this is uncertain and patient not acutely distressed at this time and has significant cardiac history do not want to give epinephrine unless necessarily - Will trial patient with loratadine and famotidine in the event there is in part an allergic response #Type 2 diabetes mellitus -Glucose checks and sliding scale insulin - Hold home metformin #GERD -Continue PPI #Hx of CAD -w/ previous stenting -Continue home medications - Patient reports that he has multivessel disease and is post to go back to his heart doctor on the to discuss stenting, they wanted to make sure he could tolerate the medical therapy prior to proceeding #DVT ppx: Lovenox subcu Ana Cristina Walton MD Charges/Coding Visit Charges Inpatient E&M: 11195 Init Hosp L2
--- NOTE | 2025-03-24 18:40 | CASEMGMT ---
Care Management Face to Face with patient for initial transition planning/care coordination assessment in the ED.? This screenplay writer introduced self and role at [facility]. Patient alert and oriented. Patient willing to participate in assessment and is able to answer all questions appropriately.? Care providers, pharmacy, and demographics verified. Admitting Diagnosis: ?Syncopal episode, bilateral hand swelling Other diagnosis history: arthritis, chest pain PCP: ?[facility] Specialists: Migration Agent Preferred Pharmacy: [facility] Insurance: ?[facility] dual Prescription Benefit: ?yes Living Will/HPOA: ?not completed LNOK: Living Arrangements: ?one story apartment, independent with ADLs and IADLs. Transportation: patient drives DME: ?[employer] HHC: none SNF/Rehab: ?none Community Resources: ?[facility] homecare sending nurse on April 21 for assessment Behavioral Health History: ?none Patient goals: Patient wishes to discharge home, denies need for home health care at this time. Patient denies any further needs or concerns at this time. Disposition Plan: admission to acute; RN CM/SW to follow for discharge planning needs that may arise. Lorri Dial, CASE RESOLUTION SPECIALIST, ARC CUTTER
[2025-03-24 19:58] LABS: Bedside Glucose 159 mg/dL (74-106)
[2025-03-24 22:25] LABS: Pro- Brain NATRIURETIC PEPTIDE 621 pg/mL (<=1800)
[2025-03-24 22:26] LABS: Troponin T High Sensitivity 23 ng/L (<=22)
[2025-03-24] MEDS: Pravastatin 20 MG Tablet PO (23:20)
[2025-03-24] MEDS: Insulin Lispro 100 UNIT/ML INSULN.PEN SC (23:20)
[2025-03-24] MEDS: Famotidine 200 MG/20 ML MDV 20 MG in 0.9% Normal Saline (Pres. free 8 ML 300 MG IV (23:21)
[2025-03-24] MEDS: Acetaminophen 325 MG Tablet 650 MG PO (23:21)
[2025-03-24] MEDS: Pantoprazole Sodium 40 MG Tablet PO (23:21)
[2025-03-24] MEDS: MELATONIN 3 MG TABLET PO (23:21)
[2025-03-24] MEDS: Ranolazine 500 MG Tablet 1000 MG PO (23:21)
[2025-03-24] MEDS: Loratadine 10 MG Tablet PO (23:23)
[2025-03-24 23:48] LABS: Bedside Glucose 161 mg/dL (74-106)
[2025-03-24 23:58] LABS: Troponin T High Sens 2 HR 19 ng/L (<=22)
[2025-03-25 01:28] LABS: Troponin T High Sens 4 HR 28 ng/L (<=22)
[2025-03-25 04:15] VITALS: O2SAT 89
[2025-03-25 04:29] VITALS: BP 107/55; PULSE 64; RESP 16; TEMP 36.8; O2SAT 97
[2025-03-25 04:50] LABS: Absolute Lymphocyte Count 1.54 X10^3/uL (0.83-4.51); Absolute Neutrophil Count 3.7 X10^3/uL (2.0-7.7); Basophil# 0.01 X10^3/uL; Basophil% 0.2 % (0-1); Eosinophil# 0.08 X10^3/uL; Eosinophils% 1.4 % (0-5); Hematocrit 36.5 % (40-54); Hemoglobin 12.3 g/dL (13.0-16.5); Lymphocyte # 1.54 X10^3/ul (0.83-4.51); Lymphocyte % 27.3 % (19-41); Mean Corp Hgb Conc 33.7 g/dL (32-36); Mean Corpuscular Hgb 31.4 pg (27.0-32.0); Mean Corpuscular Volume 93.1 fL (80-94); Mean Platelet Vol. 9.7 fl (6.2-12.0); Monocyte# 0.33 X10^3/uL; Monocyte% 5.8 % (0-10); NRBC Flagged by Analyzer 0 % (0-5); Neutrophil # 3.67 X10^3/uL (2.7-7.7); Neutrophil % 64.9 % (47-70); Platelet Count 208 K/mm3 (150-450); RBC Distribution Width CV 14.4 % (11.6-14.6); RBC Distribution Width SD 48.7 fl (35.1-43.9); Red Blood Count 3.92 M/mm3 (4.6-6.2); White Blood Count 5.7 K/mm3 (4.4-11.0)
[2025-03-25 05:22] LABS: Anion Gap 10 (5-15); BUN 20 mg/dL (4-19); BUN/Creat Ratio 18.4 RATIO (10-20); Calcium,Total 8.6 mg/dL (7.6-11.0); Carbon Dioxide 23.7 mmol/L (21.0-32.0); Chloride 102 mmol/L (98-108); Creatinine, Serum 1.09 mg/dL (0.70-1.20); EST Glomerular Filtration Rate 69 (>60); Estimated Creatinine Clearance 55.49 ml/min (50-250); Glucose 121 mg/dL (70-99); Potassium 4.1 mmol/L (3.3-5.1); Sodium Level 136 mmol/L (133-145)
[2025-03-25 06:00] VITALS: BMI 26.9
[2025-03-25 06:57] LABS: Bedside Glucose 149 mg/dL (74-106)
[2025-03-25] MEDS: Ipratropium/Albuterol Sulfate 3 ML AMPUL.NEB INHALATION (07:23)
[2025-03-25 07:24] VITALS: PULSE 71; RESP 16; O2SAT 94
[2025-03-25 08:16] VITALS: BP 118/57; PULSE 77; RESP 18; TEMP 36.5; O2SAT 95
[2025-03-25] MEDS: Ranolazine 500 MG Tablet 1000 MG PO (08:18)
[2025-03-25] MEDS: Aspirin E.C. 81 MG Tablet PO (08:18)
[2025-03-25] MEDS: Clopidogrel Bisulfate 75 MG Tablet PO (08:18)
[2025-03-25] MEDS: Furosemide 20 MG Tablet PO (08:18)
[2025-03-25] MEDS: Carvedilol 12.5 MG Tablet PO (08:18)
[2025-03-25] MEDS: 0.9% Saline Lock 10 ML Syringe IV (08:19)
[2025-03-25] MEDS: Enoxaparin 40 MG/0.4 ML Syringe SC (08:20)
[2025-03-25] MEDS: Pantoprazole Sodium 40 MG Tablet PO (08:28)
[2025-03-25] MEDS: Ceftriaxone 1 GM/50 ML BAG IV (08:31)
--- NOTE | 2025-03-25 08:38 | PCM.PN.HOSP ---
Reason for Visit Reason for Visit: Diagnoses Other specified soft tissue disorders (03/24/25) Hypoxemia (03/24/25) Objective Data Objective Data Vital Signs: Vital Signs Temp Pulse Resp BP Pulse Ox O2 Del Method O2 Flow Rate 97.7 F L 77 18 118/57 L 95 Room Air 2 03/25/25 08:16 03/25/25 08:16 03/25/25 08:16 03/25/25 08:16 03/25/25 08:16 03/25/25 08:16 03/25/25 07:24 FiO2 93 03/24/25 22:50 Oxygen Flow Rate (L/min) 2 Oxygen Delivery Method Room Air Weight: 166 lb 7.184 oz Body Mass Index (BMI) 26.9 Intake & Output: Intake and Output for Last 24 Hours 03/23/25 03/24/25 03/25/25 23:59 23:59 23:59 Intake Total 1060 / 1060 Balance 1060 / 1060 Lab / Micro Data 03/25/25 04:08 03/25/25 04:08 Labs: Laboratory Results - last 24 hr 03/24/25 13:05: WBC 8.0, RBC 4.56 L, Hgb 14.4, Hct 41.4, MCV 90.8, MCH 31.6, MCHC 34.8, RDW Std Deviation 46.6 H, RDW Coeff of Reg 14.1, Plt Count 238, MPV 9.2, Immature Gran % (Auto) 0.500, Neut % (Auto) 77.2 H, Lymph % (Auto) 16.2 L, [place] % (Auto) 5.7, Eos % (Auto) 0.3, Baso % (Auto) 0.1, Absolute Neuts (auto) 6.1, Absolute Lymphs (auto) 1.29, Nucleated RBC % 0, Sodium 133, Potassium 4.2, Chloride 97 L, Carbon Dioxide 20.1 L, Anion Gap 16 H, BUN 19, Creatinine 1.26 H, Estim Creat Clear Calc 48.00 L, Est GFR (MDRD) Non-Af 58 L, BUN/Creatinine Ratio 15.0, Glucose 167 H, Calcium 9.0, NT pro BNP II 621 03/24/25 15:42: Urine Color Yellow, Urine Clarity Sl. Cloudy, Urine pH 5.0, Ur Specific [place] 1.020, Urine Protein 30 H, Urine Glucose (UA) 100 H, Urine Ketones Negative, Urine Occult Blood Negative, Urine Nitrite Positive H, Urine Bilirubin 1 H, Urine Urobilinogen 1 H, Ur Leukocyte Esterase 25 H, Urine RBC 0-5 SEEN, Urine WBC 5-10 SEEN, Ur Squamous Epith Cells 0-5 SEEN, Urine Bacteria 1+, Hyaline Casts 5-10 SEEN, Urine Mucus 1+ 03/24/25 19:36: POC Glucose 159 H 03/24/25 21:15: Troponin T High Sens 23 H 03/24/25 22:50: Troponin T Hi Sens 2 Hr 19 03/24/25 23:15: POC Glucose 161 H 03/25/25 00:59: Troponin T Hi Sens 4Hr 28 H 03/25/25 04:08: WBC 5.7, RBC 3.92 L, Hgb 12.3 L, Hct 36.5 L, MCV 93.1, MCH 31.4, MCHC 33.7, RDW Std Deviation 48.7 H, RDW Coeff of Reg 14.4, Plt Count 208, MPV 9.7, Immature Gran % (Auto) 0.400, Neut % (Auto) 64.9, Lymph % (Auto) 27.3, [place] % (Auto) 5.8, Eos % (Auto) 1.4, Baso % (Auto) 0.2, Absolute Neuts (auto) 3.7, Absolute Lymphs (auto) 1.54, Nucleated RBC % 0, Sodium 136, Potassium 4.1, Chloride 102, Carbon Dioxide 23.7, Anion Gap 10, BUN 20 H, Creatinine 1.09, Estim Creat Clear Calc 55.49, Est GFR (MDRD) Non-Af 69, BUN/Creatinine Ratio 18.4, Glucose 121 H, Calcium 8.6 03/25/25 06:38: POC Glucose 149 H Micro: Microbiology 03/24/25 22:45 Mucosa - Nasopharyngeal Respiratory Panel (PCR) - Final 03/24/25 17:40 Mucosa - Nose SARS-CoV-2, Influenza & RSV (PCR) - Final Radiography Diagnostic Testing: Radiology Impression Venous Doppler Study 03/24/25 12:58 Interpretation Summary Deep veins of the bilateral upper extremities are patent and compressible segmentally. There is no evidence of deep vein thrombosis. Superficial veins of the bilateral upper extremities are patent and compressible segmentally. There is no evidence of superficial vein thrombosis. Ordering Physician: Bo Marley Referring Physician: Catrachito Ferris Performed By: Dudley Henry, RVT ??? Chest CTA 03/24/25 15:52 IMPRESSION: 1. No pulmonary embolism or other acute cardiopulmonary abnormality. 2. Emphysematous changes. 3. Mild narrowing at the origin of the celiac axis. Correlate with symptoms. Reading Location: [facility] Physical Exam Narrative General: Alert, oriented, no apparent distress HEENT: Atraumatic, normocephalic Eyes: Anicteric, normal conjunctiva, extraocular movements grossly intact Neck: Supple Respiratory: No overt wheezes or rhonchi, normal respiratory effort Cardiovascular: Regular rate and rhythm GI: Soft, nontender, nondistended Extremities: Patient with edema in hands and wrists which is pitting in nature Musculoskeletal: Moving all extremities Neuro: No overt focal neurological deficits Skin: Patient with some erythematous hands with sections that also go up arms, not uniformly in a glove distribution Psych: Cooperative Assessment & Plan Assessment/Plan (1) Bilateral hand swelling: (2) Hypoxia: PLAN: Plan 79 old gentleman was admitted for a near syncopal episode with drop in BP when standing. Nauseated. This happened while he saw his PCP for bilateral hand swelling for last few days # Presyncopal episode -Lasted for 5 minutes and was present while patient was sitting down -admit to telemetry -?Secondary to hypoxia versus hypotension versus arrhythmia versus ? -EGK normal sinus rhythm with no arrhythmia or ST elevation - CTA with no PE -orthostatic vital signs ordered -Of note in the ED patient did drop down to 91/66 and blood pressure was somewhat low, will hold patient's lisinopril -will obtain echo - Will check BNP and troponin #Hypertension - Patient's blood pressure borderline upon arrival, did improve after arrival to the floor - Continuing Coreg and holding lisinopril at this time - Orthostats as above #Hypoxia - Reportedly patient desaturated on ambulation for discharge though he denies any current respiratory complaints - CTA negative for acute process - COVID/flu/RSV negative - Will check respiratory panel -Duonebs ordered - Checking echo already as above - Will check BNP though only upper extremities are swollen with no lower extremity swelling officiated - Continue patient's home furosemide of 20 mg daily at this time #Bilat upper extremity swelling -Unclear etiology -No DVTs appreciated on venous duplex per report - Patient and deny any new activities like working in the yard or any new detergents -Does note that the swelling seemed to start after eating some new foods 3 days ago, did not have any respiratory symptoms or other swelling at that time - Does almost appear cellulitic in nature and patient given antibiotics in the ED, these were continued - Is a possibility that this prolonged allergy response however given this is uncertain and patient not acutely distressed at this time and has significant cardiac history do not want to give epinephrine unless necessarily - Will trial patient with loratadine and famotidine in the event there is in part an allergic response #Type 2 diabetes mellitus -Glucose checks and sliding scale insulin - Hold home metformin #GERD -Continue PPI #Hx of CAD -w/ previous stenting -Continue home medications - Patient reports that he has multivessel disease and is post to go back to his heart doctor on the to discuss stenting, they wanted to make sure he could tolerate the medical therapy prior to proceeding #DVT ppx: Lovenox subcu Ana Cristina Walton MD
--- NOTE | 2025-03-25 16:17 | PCM.DC.SUM ---
Providers Date of Admission: 03/24/25 Date of Discharge: 03/25/25 Primary Care Physician: Dr. Catrachito Ferris MD Reason For Visit: HAND SWELLING AND HYPOXIA Diagnosis Discharge Diagnosis (1) Bilateral hand swelling: Status: Acute Code(s): M79.89 - Other specified soft tissue disorders (2) Hypoxia: Status: Acute Code(s): R09.02 - Hypoxemia Plan 79 old gentleman was admitted for a near syncopal episode with drop in BP when standing. Nauseated. This happened while he saw his PCP for bilateral hand swelling for last few days 1. Presyncopal/syncopal episode. Patient is stated that he might have passed out for 5 minutes. Admitted in PCU. Possible differential might be hypotension/hypoxia. Patient does not want to stay for further evaluation. BP 118/57 improved from 91/66. History with IV fluid. -EGK normal sinus rhythm with no arrhythmia or ST elevation - CTA with no PE. Venous Doppler shows no DVT in upper extremity veins. -orthostatic vital signs ordered but patient did not stand signed AMA. He said he has car parked which might be towed and he already knows high due. #Hypoxia In ED, Reportedly patient desaturated on ambulation for discharge though he denies any current respiratory complaints - CTA negative for acute process - COVID/flu/RSV negative. Respiratory panel negative. Urine culture pending. Echo was ordered but patient did not stay for echo to be done. - Continue patient's home furosemide of 20 mg daily at this time #Bilat upper extremity swelling: Upper extremity swelling is resolved in the morning. It might be allergic swelling//urticaria as it was accompanied with itching and mild redness -No DVTs appreciated on venous duplex per report - Patient and deny any new activities like working in the yard or any new detergents -Does note that the swelling seemed to start after eating some new foods 3 days ago, did not have any respiratory symptoms or other swelling at that time - Does almost appear cellulitic in nature and patient given antibiotics in the ED, these were continued #Type 2 diabetes mellitus -Glucose checks and sliding scale insulin - Hold home metformin #GERD -Continue PPI #Hx of CAD -w/ previous stenting -Continue home medications - 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 He signed AMA Medications at Discharge Home Medications lisinopril 20 mg tablet 20 mg PO BID BLOOD PRESSURE 04/01/16 metformin 1,000 mg tablet 1,000 mg PO BID BLOOD SUGAR CONTROL 04/01/16 nitroglycerin 0.4 mg sublingual tablet 0.4 mg sublingual Q5M PRN Chest Pain 04/01/16 pravastatin 20 mg tablet 20 mg PO QHS CHOLESTEROL 04/01/16 triamcinolone acetonide 0.1 % topical cream 1 applic topical DAILY PRN 03/08/24 carvedilol 12.5 mg tablet 12.5 mg PO BID 08/09/24 omeprazole 40 mg capsule,delayed release 40 mg PO BID #60 caps 11/22/24 amoxicillin 875 mg-potassium clavulanate 125 mg tablet 1 tab PO BID #20 tabs 03/24/25 aspirin 81 mg tablet,delayed release 81 mg PO DAILY 03/24/25 clopidogrel 75 mg tablet 75 mg PO DAILY 03/24/25 furosemide 20 mg tablet 20 mg PO DAILY 03/24/25 ranolazine 1,000 mg tablet,extended release,12 hr 1,000 mg PO Q12H 03/24/25 Physical Exam Narrative Seen and examined Appointment swelling has resolved. Patient is on baseline. He said he has to leave the hospital by at 9 AM Ready to sign AMA. General: Alert, Oriented x3, Cooperative. BMI 26.9 kg/m? HEENT: Atraumatic, PERRLA, EOMI, Normocephalic. Oral: No Gingival or Mucosal Lesions/ Ulcerations Neck: Supple, No JVD, Negative Carotid Bruits Chest wall/Lungs: Air entry diminished in bilateral lung bases. No crepitation/rhonchi Cardiovascular: Regular rate and rhythm, Normal S1,S2, No M/G/R Abdomen: Bowel Sounds Present, Soft, Non Tender, Non-Distended : No dysuria. No renal angle tenderness. No suprapubic tenderness. Extremities: No edema, Capillary Refill Less than 3 Seconds Skin: No rashes, No breakdown Musculoskeletal: Degenerative arthritic changes on the metacarpal heads of the hands. No swelling appreciated in hands. No Tenderness to Palpation of Joints or Extremities Neurological: Cranial nerves II-XII grossly intact, DTR 2+/4. No acute focal neurological deficit. Psych/Mental Status: Normal Affect, Appropriate. Weight / BMI Weight Weight: 166 lb 7.184 oz Body Mass Index (BMI) 26.9 ABG / Lab / Microbiology Data 03/25/25 04:08 03/25/25 04:08 Laboratory: Laboratory Results - last 24 hr 03/24/25 13:05: NT pro BNP II 621 03/24/25 15:42: Urine RBC 0-5 SEEN, Urine WBC 5-10 SEEN, Ur Squamous Epith Cells 0-5 SEEN, Urine Bacteria 1+, Hyaline Casts 5-10 SEEN, Urine Mucus 1+ 03/24/25 19:36: POC Glucose 159 H 03/24/25 21:15: Troponin T High Sens 23 H 03/24/25 22:50: Troponin T Hi Sens 2 Hr 19 03/24/25 23:15: POC Glucose 161 H 03/25/25 00:59: Troponin T Hi Sens 4Hr 28 H 03/25/25 04:08: WBC 5.7, RBC 3.92 L, Hgb 12.3 L, Hct 36.5 L, MCV 93.1, MCH 31.4, MCHC 33.7, RDW Std Deviation 48.7 H, RDW Coeff of Reg 14.4, Plt Count 208, MPV 9.7, Immature Gran % (Auto) 0.400, Neut % (Auto) 64.9, Lymph % (Auto) 27.3, [place] % (Auto) 5.8, Eos % (Auto) 1.4, Baso % (Auto) 0.2, Absolute Neuts (auto) 3.7, Absolute Lymphs (auto) 1.54, Nucleated RBC % 0, Sodium 136, Potassium 4.1, Chloride 102, Carbon Dioxide 23.7, Anion Gap 10, BUN 20 H, Creatinine 1.09, Estim Creat Clear Calc 55.49, Est GFR (MDRD) Non-Af 69, BUN/Creatinine Ratio 18.4, Glucose 121 H, Calcium 8.6 03/25/25 06:38: POC Glucose 149 H Microbiology: Microbiology 03/24/25 22:45 Mucosa - Nasopharyngeal Respiratory Panel (PCR) - Final 03/24/25 17:40 Mucosa - Nose SARS-CoV-2, Influenza & RSV (PCR) - Final Radiography Diagnostic Testing: Radiology Impression Chest CTA 03/24/25 15:52 IMPRESSION: 1. No pulmonary embolism or other acute cardiopulmonary abnormality. 2. Emphysematous changes. 3. Mild narrowing at the origin of the celiac axis. Correlate with symptoms. Reading Location: [id number] Instructions DC O2, CPAP, BIPAP Needs Home O2 Discharge instructions: No Meaningful Use Info Meaningful Use Meaningful Use Diagnoses (Choose all that apply): None applicable Ischemic Stroke Statin Dosing Therapy Reference: STATIN DOSE THERAPY REFERENCE: * Patients > 75 years receive moderate or high dose statin therapy. * Patients 75 years or YOUNGER should receive HIGH intensity statin dose unless contraindicated. You will be required to document reason for non-treatment if statin daily dose does not meet guidelines. HIGH DOSE STATIN THERAPY DAILY Atorvastatin > than or = to 40 mg Rosuvastatin > than or = to 20 mg Amlodipine + Atorvastatin > than or = to 2.5/40 mg Ezetimibe + Simvastatin 10/80 mg Simvastatin 80mg Discharge Plan Admission Admit Date/Time: 03/24/25 18:09 Attending Provider: Kyle Benavides Primary Care Provider: Catrachito Ferris Consulting Providers: Ana Cristina Walton Instructions Patient Instructions: ED Cellulitis, ED Lymphedema, ED Near-Fainting, Uncertain Cause Additional Instructions / Restrictions: Return to the emergency department with increased redness or swelling of your hands, new or worsening symptoms. Discharge Orders/Prescriptions Prescriptions: New amoxicillin-pot clavulanate 875-125 mg tablet 1 tab PO BID Qty: 20 0RF No Action triamcinolone acetonide 0.1 % cream 1 applic topical DAILY PRN carvedilol 12.5 mg tablet 12.5 mg PO BID lisinopril 20 MG tablet 20 mg PO BID metformin 1,000 MG tablet 1,000 mg PO BID nitroglycerin 0.4 MG tablet 0.4 mg sublingual Q5M PRN (Reason: Chest Pain) pravastatin 20 MG tablet 20 mg PO QHS furosemide 20 mg tablet 20 mg PO DAILY ranolazine 1,000 mg tablet extended release 12 hr 1,000 mg PO Q12H aspirin 81 mg tablet,delayed release (DR/EC) 81 mg PO DAILY clopidogrel 75 mg tablet 75 mg PO DAILY omeprazole 40 mg capsule,delayed release(DR/EC) 40 mg PO BID Qty: 60 3RF Referrals / Follow Up: Catrachito Ferris MD [Primary Care Provider] - 3-5 Days if not improving Disposition Disposition (needs filled in before D/C Order can be placed): Home, Self Care Charges/Coding Visit Charges Inpatient E&M: 43973 Disch Hosp >30min
== END 2025-03-25 08:57 | disposition left against medical advice (07) ==
LOC: ED 17:32 → PCU 18:12
PROVIDERS: Admitting Provider Internal Medicine; Emergency Provider Emergency Medicine; PCP Family Medicine; Referring Provider Emergency Medicine; Visit Provider Internal Medicine
DX: R55 Syncope and collapse (principal); J44.9 Chronic obstructive pulmonary disease, unspecified; E11.9 Type 2 diabetes mellitus without complications; I95.9 Hypotension, unspecified; R09.02 Hypoxemia; M79.89 Other specified soft tissue disorders; L03.114 Cellulitis of left upper limb; L03.113 Cellulitis of right upper limb; I25.10 Atherosclerotic heart disease of native coronary artery without angina pectoris; I10 Essential (primary) hypertension; Z11.52 Encounter for screening for COVID-19; K21.9 Gastro-esophageal reflux disease without esophagitis; Z79.02 Long term (current) use of antithrombotics/antiplatelets; Z79.82 Long term (current) use of aspirin; Z79.84 Long term (current) use of oral hypoglycemic drugs; Z79.899 Other long term (current) drug therapy; Z87.891 Personal history of nicotine dependence; Z95.5 Presence of coronary angioplasty implant and graft
CPT/HCPCS: 36415; 71275; 80048; 81001; 82962; 83880; 84484; 85025; 87086; 87631; 87633; 93005; 93970; 94640; 94668; 96361; 96365; 96366; 96367; 96372; 99221; 99285; Q9967; A4216; G0378